=== PATIENT | female | born 1965 | race Caucasian/White ===

== ENCOUNTER → 2018-11-20 | Outpatient (CLI) | payer BC ==
[2018-11-20 23:47] LABS: ALT 45 U/L (8-44); AST 28 U/L (13-35); Albumin/Globulin Ratio 2.09 (1.60-3.17); Alkaline Phosphatase 78 U/L (41-126); C Reactive Protein <0.4 mg/dL (0.0-0.8); Chloride 102 mmol/L (96-109); Globulin 2.2 g/dL (1.6-3.3); Glucose 111 mg/dL (70-110); Sodium 138 mmol/L (135-145); Total Bilirubin 0.7 mg/dL (0.3-1.2); Total Protein 6.8 g/dL (6.2-8.2)
== END | disposition home or self-care (01) ==
LOC: LABWHC1 14:57
PROVIDERS: ATTEND Internal Medicine Critical Care Medicine
DX: D86.9 Sarcoidosis, unspecified (principal)
CPT/HCPCS: 36415; 80053; 82164; 85652; 86140

== ENCOUNTER → 2019-05-12 | Outpatient (CLI) | payer BC ==
[2019-05-12 11:20] LABS: African American GFR (CKD) 115.5 (60.0-200.0); Albumin 4.3 g/dL (3.80-4.90); Albumin/Globulin Ratio 2.15 (1.60-3.17); Anion Gap 10.6 mmol/L (4.00-12.00); BUN/Creat Ratio 24.29 Ratio (12.00-20.00); Calcium 9.1 mg/dL (8.7-10.3); Carbon Dioxide 25.4 mmol/L (21.6-31.8); Chol/HDL Ratio 3.61; LDL Cholesterol,Calculated 56.2 mg/dL (0.0-131.0); Potassium 4.5 mmol/L (3.5-5.5); Total Bilirubin 0.7 mg/dL (0.2-1.2); Total Protein 6.3 g/dL (6.2-8.2); VLDL Calculation 42.8 mg/dL (5.00-40.00)
== END | disposition home or self-care (01) ==
LOC: LABWHC1 07:18
PROVIDERS: ATTEND Family Medicine
DX: E78.5 Hyperlipidemia, unspecified (principal)
CPT/HCPCS: 36415; 80053; 80061; 82550

== ENCOUNTER → 2019-05-19 | Outpatient (CLI) | payer BC ==
--- NOTE | 2019-05-19 11:31 | CT ---
EXAMINATION TYPE: CT chest w con DATE OF EXAM: 05/19/2019 COMPARISON: NONE HISTORY: Pulmonary nodule CT DLP: 464 mGycm. Automated Exposure Control for Dose Reduction was Utilized. TECHNIQUE: CT scan of the thorax is performed following with IV Contrast, patient injected with 100 mL of Isovue 300. FINDINGS: LUNGS: There is a calcified 3-4 mm nodule or granuloma left upper lobe axial image 16. There is calci fied 2 to 3 mm left lower lobe nodule axial image 41 with calcifications seen better on sagittal imag es. There is 2 mm peripheral left lower lobe nodule image 44. There is 2 to 3 mm dense probable calci fied medial right upper lobe nodule image 21 . No definitive greater than 4 mm noncalcified nodules o r masses. No pleural effusion or pneumothorax is seen bilaterally. MEDIASTINUM: There are no greater than 1 cm hilar or mediastinal lymph nodes. Prominent but subcentim eter bilateral hilar lymph nodes are seen. No cardiomegaly or pericardial effusion is seen. OTHER: No additional significant abnormality is seen. IMPRESSION: Scattered small nodules as detailed above. No suspicious greater than 4 mm noncalcified n odules or pulmonary masses identified.
== END ==
LOC: RADCTMAIN 09:29
PROVIDERS: ATTEND Internal Medicine Critical Care Medicine
DX: R91.8 Other nonspecific abnormal finding of lung field (principal)
CPT/HCPCS: 71260; Q9967

== ENCOUNTER 2020-01-17 07:37 | Observation (INO) | payer BC ==
[2020-01-17] MEDS ORDERED: NITROGLYCERIN OINT 1 INCH/GM PACKET TOPICAL STA (07:56)
[2020-01-17] MEDS ORDERED: ASPIRIN 81 MG PO STA (07:56)
--- NOTE | 2020-01-17 08:03 | ED ---
General Adult HPI - General Chief complaint: Chest Pain Stated complaint: Chest pain Time Seen by Provider: 01/17/20 07:37 Source: patient, family, RN notes reviewed, old records reviewed Mode of arrival: ambulatory Limitations: no limitations - History of Present Illness Initial comments: This a 54-year-old female presents to the emergency department complaining of right-sided chest pain. Patient states that sharp in nature and radiates around to her back per patient states she also has some heaviness in her arm. Patient denies any diabetes or high blood pressure but she does state she has high cholesterol. Patient also states she has a strong family history of heart disease in her mother and 2 brothers. Patient denies any smoking. Patient denies any recent fever chills or cough. Patient states the pain is definitely worse with deep breath. Patient states this morning it was severe. Patient denies any abdominal pain patient denies nausea vomiting diarrhea. Patient denies any swelling to the legs or calf tenderness. Patient started this morning when the patient woke up - Related Data Allergies Allergy/AdvReac Type Severity Reaction Status Date / Time No Known Allergies Allergy Verified 01/17/20 07:40 Review of Systems ROS Statement: Those systems with pertinent positive or pertinent negative responses have been documented in the HPI. ROS Other: All systems not noted in ROS Statement are negative. Past Medical History Past Medical History: Hyperlipidemia Additional Past Medical History / Comment(s): sarcoidosis History of Any Multi-Drug Resistant Organisms: None Reported Past Surgical History: Orthopedic Surgery, Tonsillectomy Past Psychological History: No Psychological Hx Reported Smoking Status: Former smoker Past Alcohol Use History: Unable to Obtain, Occasional Past Drug Use History: Marijuana General Exam - General Exam Comments Initial Comments: GENERAL: Patient is well-developed and well-nourished. Patient is nontoxic and well- hydrated and is in mild distress. ENT: Neck is soft and supple. No significant lymphadenopathy is noted. Oropharynx is clear. Moist mucous membranes. Neck has full range of motion without eliciting any pain. EYES: The sclera were anicteric and conjunctiva were pink and moist. Extraocular movements were intact and pupils were equal round and reactive to light. Eyel ids were unremarkable. PULMONARY: Unlabored respirations. Good breath sounds bilaterally. No audible rales rhonchi or wheezing was noted. CARDIOVASCULAR: There is a regular rate and rhythm without any murmurs gallops or rubs. ABDOMEN: Soft and nontender with normal bowel sounds. SKIN: Skin is clear with no lesions or rashes and otherwise unremarkable. NEUROLOGIC: Patient is alert and oriented x3. Cranial nerves II through XII are grossly intact. Motor and sensory are also intact. Normal speech, volume and content. Symmetrical smile. MUSCULOSKELETAL: Normal extremities with adequate strength and full range of motion. LYMPHATICS: No significant lymphadenopathy is noted PSYCHIATRIC: Normal psychiatric evaluation. Limitations: no limitations Course Vital Signs 01/17/20 01/17/20 01/17/20 07:40 08:21 09:39 Temperature 98 F Pulse Rate 107 H 80 90 Respiratory 18 16 18 Rate Blood Pressure 199/89 136/83 120/76 O2 Sat by Pulse 100 98 96 Oximetry Medical Decision Making - Medical Decision Making EKG shows normal sinus rhythm at 84 bpm [place] interval 228 QRSs 80 QT interval 366 QTC is 432. EKG shows no ST segment elevation or depression. Chest shows no acute abnormality. I will back into the room to reevaluate the patient and the patient stated the Nitropaste seem to relieve all the sharp chest pain as well as the arm heaviness. I spoke with some physicians agreed to admit the patient admitted the patient wrote admitting orders I started the patient heparin emergency department I continue the heparin and aspirin Nitropaste on the floor - Lab Data Result diagrams: 01/17/20 08:00 01/17/20 08:00 Lab Results 01/17/20 01/17/20 01/17/20 Range/Units 08:00 08:00 08:00 WBC 5.6 (3.8-10.6) k/uL RBC 4.28 (3.80-5.40) m/uL Hgb 12.5 (11.4-16.0) gm/dL Hct 39.3 (34.0-46.0) % MCV 92.0 (80.0-100.0) fL MCH 29.2 (25.0-35.0) pg MCHC 31.7 (31.0-37.0) g/dL RDW 12.2 (11.5-15.5) % Plt Count 275 (150-450) k/uL Neutrophils % 63 % Lymphocytes % 26 % Monocytes % 6 % Eosinophils % 3 % Basophils % 1 % Neutrophils # 3.5 (1.3-7.7) k/uL Lymphocytes # 1.4 (1.0-4.8) k/uL Monocytes # 0.3 (0-1.0) k/uL Eosinophils # 0.2 (0-0.7) k/uL Basophils # 0.0 (0-0.2) k/uL PT 9.8 (9.0-12.0) sec INR 0.9 (<1.2) APTT 22.0 (22.0-30.0) sec D-Dimer <0.17 (<0.60) mg/L FEU Sodium 135 L (137-145) mmol/L Potassium 4.9 (3.5-5.1) mmol/L Chloride 104 (98-107) mmol/L Carbon Dioxide 19 L (22-30) mmol/L Anion Gap 12 mmol/L BUN 18 H (7-17) mg/dL Creatinine 0.54 (0.52-1.04) mg/dL Est GFR (CKD-EPI)AfAm >90 (>60 ml/min/1.73 sqM) Est GFR (CKD-EPI)NonAf >90 (>60 ml/min/1.73 sqM) Glucose 119 H (74-99) mg/dL Calcium 9.1 (8.4-10.2) mg/dL Magnesium 1.8 (1.6-2.3) mg/dL Total Bilirubin 1.1 (0.2-1.3) mg/dL AST 35 (14-36) U/L ALT 26 (4-34) U/L Alkaline Phosphatase 87 (38-126) U/L Troponin I (0.000-0.034) ng/mL NT-Pro-B Natriuret Pep pg/mL Total Protein 7.6 (6.3-8.2) g/dL Albumin 4.4 (3.5-5.0) g/dL 01/17/20 01/17/20 Range/Units 08:00 08:00 WBC (3.8-10.6) k/uL RBC (3.80-5.40) m/uL Hgb (11.4-16.0) gm/dL Hct (34.0-46.0) % MCV (80.0-100.0) fL MCH (25.0-35.0) pg MCHC (31.0-37.0) g/dL RDW (11.5-15.5) % Plt Count (150-450) k/uL Neutrophils % % Lymphocytes % % Monocytes % % Eosinophils % % Basophils % % Neutrophils # (1.3-7.7) k/uL Lymphocytes # (1.0-4.8) k/uL Monocytes # (0-1.0) k/uL Eosinophils # (0-0.7) k/uL Basophils # (0-0.2) k/uL PT (9.0-12.0) sec INR (<1.2) APTT (22.0-30.0) sec D-Dimer (<0.60) mg/L FEU Sodium (137-145) mmol/L Potassium (3.5-5.1) mmol/L Chloride (98-107) mmol/L Carbon Dioxide (22-30) mmol/L Anion Gap mmol/L BUN (7-17) mg/dL Creatinine (0.52-1.04) mg/dL Est GFR (CKD-EPI)AfAm (>60 ml/min/1.73 sqM) Est GFR (CKD-EPI)NonAf (>60 ml/min/1.73 sqM) Glucose (74-99) mg/dL Calcium (8.4-10.2) mg/dL Magnesium (1.6-2.3) mg/dL Total Bilirubin (0.2-1.3) mg/dL AST (14-36) U/L ALT (4-34) U/L Alkaline Phosphatase (38-126) U/L Troponin I <0.012 (0.000-0.034) ng/mL NT-Pro-B Natriuret Pep 28 pg/mL Total Protein (6.3-8.2) g/dL Albumin (3.5-5.0) g/dL Critical Care Time Critical Care Time: Yes Total Critical Care Time: 35 Disposition Clinical Impression: Unstable angina pectoris Disposition: ADMITTED IP TO THIS HOSP Referrals: Gemini Evans MD [Primary Care Provider] - 1-2 days Time of Disposition: 09:55
--- NOTE | 2020-01-17 08:22 | XR ---
EXAMINATION TYPE: XR chest 2V DATE OF EXAM: 01/17/2020 COMPARISON: NONE HISTORY: Shortness of breath TECHNIQUE: Frontal and lateral views of the chest are obtained. FINDINGS: Scattered senescent parenchymal changes noted. Hyperinflation compatible with COPD. No evidence for infiltrate. No evidence for atelectasis. Heart size is stable. Mediastinal structures are stable and grossly unremarkable. No evidence for hilar prominence. Degenerative changes dorsal spine. IMPRESSION: 1. No evidence for acute pulmonary disease.
[2020-01-17 08:41] LABS: Basophils % (A) 1 %; Eosinophils # (A) 0.2 k/uL (0-0.7); Eosinophils % (A) 3 %; HCT 39.3 % (34.0-46.0); HGB 12.5 gm/dL (11.4-16.0); Lymphocytes # (A) 1.4 k/uL (1.0-4.8); Lymphocytes % (A) 26 %; MCH 29.2 pg (25.0-35.0); MCHC 31.7 g/dL (31.0-37.0); Mean Platelet Volume 7.1; Monocytes # (A) 0.3 k/uL (0-1.0); Monocytes % (A) 6 %; Neutrophils # (A) 3.5 k/uL (1.3-7.7); Neutrophils % (A) 63 %; Platelet Count 275 k/uL (150-450); RBC 4.28 m/uL (3.80-5.40); RDW 12.2 % (11.5-15.5); WBC 5.6 k/uL (3.8-10.6)
[2020-01-17 08:46] LABS: ALT 26 U/L (4-34); African American GFR (CKD) >90 (>60 ml/min/1.73 sqM); Albumin 4.4 g/dL (3.5-5.0); Anion Gap 12 mmol/L; Blood Urea Nitrogen 18 mg/dL (7-17); Calcium 9.1 mg/dL (8.4-10.2); Carbon Dioxide 19 mmol/L (22-30); Chloride 104 mmol/L (98-107); Glucose 119 mg/dL (74-99); Non-African American GFR(CKD) >90 (>60 ml/min/1.73 sqM); Sodium 135 mmol/L (137-145); Total Bilirubin 1.1 mg/dL (0.2-1.3); Total Protein 7.6 g/dL (6.3-8.2)
[2020-01-17 08:52] LABS: INR 0.9 (<1.2); Prothrombin Time 9.8 sec (9.0-12.0)
[2020-01-17 08:55] LABS: AST 35 U/L (14-36); Alkaline Phosphatase 87 U/L (38-126); Magnesium 1.8 mg/dL (1.6-2.3); Potassium 4.9 mmol/L (3.5-5.1)
[2020-01-17 09:05] LABS: D-Dimer <0.17 mg/L FEU (<0.60)
[2020-01-17] MEDS ORDERED: NITROGLYCERIN SL TABS 0.4 MG TAB SUBLINGUAL PRN (09:56)
[2020-01-17] MEDS ORDERED: HEPARIN SODIUM,PORCINE 5,000 UNIT/ML 1 ML VIAL IV ONE (09:56)
[2020-01-17] MEDS ORDERED: HEPARIN SOD,PORK IN 0.45% NACL 25,000 UNIT in 0.45% NACL 1 250ML.BAG IV SCH (10:00)
[2020-01-17] MEDS: NITROGLYCERIN OINT 1 INCH/GM PACKET TOPICAL SCH ×3 (12:10→22:59)
--- NOTE | 2020-01-17 16:02 | CONS ---
CONSULTATION CHIEF COMPLAINT: Chest pain. Flores is a 54-year-old lady with history of dyslipidemia and family history of premature coronary artery disease, who presented to hospital complaining of chest pain. She describes it as a sharp, left-sided chest pain with some left arm discomfort. It is mild in intensity. Patient has a history of sarcoidosis and has had prior episodes of atypical chest pain. At the time of my evaluation, patient appears comfortable at rest and is free of significant symptoms. She had one set of troponin that is negative, had an EKG that did not reveal significant ischemic changes. I reviewed her symptomatology, EKG, and talked to her at length about her treatment options including cardiac catheterization for definitive diagnosis versus stress test. Understanding risks, benefits, she wishes to have a stress test done for further evaluation. I am going to schedule her for a stress echo tomorrow. PAST MEDICAL HISTORY: Significant for dyslipidemia. CURRENT MEDICATIONS: Include fish oil, Tylenol, Lipitor and meloxicam. ALLERGIES: There are no known drug allergies. FAMILY HISTORY: Negative for premature coronary artery disease. SOCIAL HISTORY: Negative for smoking, EtOH abuse, or drug abuse. REVIEW OF SYSTEMS: HEENT: Unremarkable. CARDIAC: As described above. RESPIRATORY: Negative. GI: Negative. GENITOURINARY: Negative. ALLERGY/IMMUNOLOGY: Negative. SKIN: Negative. MUSCULOSKELETAL: Negative. ENDOCRINE: Negative. CONSTITUTIONAL: Negative. ONCOLOGICAL: Negative. KNITTING MACHINE FIXER: Negative. Rest of the system review is not relevant. PHYSICAL EXAMINATION: On exam, patient is comfortable at rest. Vital signs are stable. There is no jugular venous distention. Carotid upstroke is normal. There is no bruit. Chest exam reveals good air entry bilaterally. Heart exam reveals first and second heart sounds. No gallop. No murmur. No rub. Abdomen is soft, nontender. Exam of extremities did not reveal any edema. Peripheral pulses are felt. LABS: Show a hemoglobin of 12.5, platelet count is 275. Potassium is 4.9, creatinine is 0.5. ASSESSMENT: Precordial chest pain. PLAN: Patient will obtain serial CPKs and EKGs to rule out myocardial infarction. Once KS is ruled out, I will perform an echo and stress echo on her and if that is negative, she will be discharged home. If it is abnormal, she will undergo cardiac catheterization. MMODL / IJN: [id number] /
[2020-01-17] MEDS ORDERED: NALOXONE 0.4 MG/ML 1 ML VIAL IV PRN (17:00)
[2020-01-17] MEDS ORDERED: ACETAMINOPHEN TAB 325 MG TAB PO PRN (17:00)
--- NOTE | 2020-01-17 17:00 | P.HPIM ---
History of Present Illness H&P Date: 01/17/20 Chief Complaint: Chest pain Patient is a 54-year-old female with PMH of pulmonary sarcoidosis presents the ED for chest pain. Patient states that she had just taken a shower this morning and she was getting ready when she started experiencing sudden onset left-sided chest pain. She described the pain as sharp and stabbing in nature. The pain did radiate around her left breast. Patient also reports aggravation of her chest pain with deep inspiration. Patient states that the pain was steady. She states that it was a 10 out of 10 in severity. Pain was also associated with left upper extremity heaviness. She did take some aspirin prior to presentation. She denies any other symptoms. She denies any headache, lower sharri edema, nausea or vomiting, fever or chills, cough, shortness of breath, palpitations, changes in urination or bowel habits. No changes in appetite or weight. She denies any dizziness, numbness/weakness/tingling of the extremities. In the ED, her vital signs were stable. CBC was unremarkable. INR was negative. D-dimer was negative. CMP showed sodium 135, bicarbonate of 19, BUN of 18 and glucose of 119. Troponin was less than 0.0122, EKG showing normal sinus rhythm. BNP was 28, chest x-ray was negative. Patient is admitted for chest pain, rule out acute coronary syndrome with cardiology in consultation. Review of Systems Pertinent positives and negatives as discussed in HPI, a complete review of systems was performed and all other systems are negative. Past Medical History Past Medical History: Hyperlipidemia, Osteoarthritis (OA) Additional Past Medical History / Comment(s): sarcoidosis History of Any Multi-Drug Resistant Organisms: None Reported Past Surgical History: Orthopedic Surgery, Tonsillectomy Past Psychological History: No Psychological Hx Reported Smoking Status: Former smoker Past Alcohol Use History: Unable to Obtain, Occasional Past Drug Use History: Marijuana - Past Family History Mother Family Medical History: Diabetes Mellitus, Osteoarthritis (OA) Additional Family Medical History / Comment(s): congenital heart block, CABG in 1993 Father Additional Family Medical History / Comment(s): at 46, stroke at 42. Brother(s) Family Medical History: Coronary Artery Disease (CAD), Diabetes Mellitus Medications and Allergies Home Medications Medication Instructions Recorded Confirmed Type Acetaminophen [Tylenol Arthritis] 650 mg PO BID PRN 01/17/20 01/17/20 History Atorvastatin [Lipitor] 20 mg PO HS 01/17/20 01/17/20 History Cholecalciferol [Vitamin D3 (25 2,000 unit PO DAILY 01/17/20 01/17/20 History Mcg = 1000 Iu)] Fish Oil/Dha/Epa [Fish Oil 1,200 1 cap PO HS 01/17/20 01/17/20 History mg Fish Oil] Meloxicam 15 mg PO DAILY 01/17/20 01/17/20 History Allergies Allergy/AdvReac Type Severity Reaction Status Date / Time No Known Allergies Allergy Verified 01/17/20 10:14 Physical Exam Vitals: Vital Signs Temp Pulse Pulse Resp BP BP Pulse Ox 01/17/20 15:02 105 H 16 01/17/20 15:01 105 H 16 125/95 97 01/17/20 14:20 102 H 18 113/72 94 L 01/17/20 11:57 98 16 01/17/20 11:39 98 16 115/64 96 01/17/20 11:00 84 16 130/89 98 01/17/20 10:30 82 14 131/73 97 01/17/20 10:00 94 18 120/76 98 01/17/20 09:39 90 18 120/76 96 01/17/20 09:30 79 15 122/71 96 01/17/20 09:00 85 16 128/71 96 01/17/20 08:30 78 17 136/83 97 01/17/20 08:21 80 16 136/83 98 01/17/20 08:01 43 H 01/17/20 07:40 98 F 107 H 18 199/89 100 Intake and Output 01/17/20 01/17/20 01/17/20 06:59 14:59 22:59 Other: Weight 81.647 kg General: [non toxic], [no distress], [appears at stated age] Derm: [warm], [dry] Head: [atraumatic], [normocephalic], [symmetric] Eyes: [EOMI], [no lid lag], [anicteric sclera] Mouth: [no lip lesion], [mucus membranes moist] Cardiovascular: [S1S2 reg], [no murmur], [positive posterior tibial pulse bilateral], Lungs: [CTA bilateral], [no rhonchi, no rales] , [no accessory muscle use] Abdominal: [soft], [ nontender to palpation], [no guarding], [no appreciable organomegaly] Ext: [no gross muscle atrophy], [no edema], [no contractures] Neuro: [ CN II-XI grossly intact], [no focal neuro deficits] Psych: [Alert], [oriented], [appropriate affect] Results CBC & Chem 7: 01/17/20 08:00 01/17/20 08:00 Labs: Abnormal Lab Results - Last 24 Hours (Table) 01/17/20 Range/Units 08:00 Sodium 135 L (137-145) mmol/L Carbon Dioxide 19 L (22-30) mmol/L BUN 18 H (7-17) mg/dL Glucose 119 H (74-99) mg/dL Thrombosis Risk Factor Assmnt - Choose All That Apply Each Factor Represents 1 point: Age 41-60 years, Obesity (BMI >25) Each Risk Factor Represents 3 Points: Family history of DVT/PE Thrombosis Risk Factor Assessment Total Risk Factor Score: 5 Thrombosis Risk Factor Assessment Level: High Risk Assessment and Plan Assessment: Chest pain, atypical Dyslipidemia History of pulmonary sarcoidosis Elevated BUN Metabolic acidosis Troponin has been less than 0.0122 with EKG showing normal sinus rhythm. Her symptoms are atypical for cardiac chest pain. She has been started on heparin drip from the ED. She was started on aspirin and Lipitor. Patient was placed on telemetry monitoring. We will discontinue the heparin drip. Cardiology has been consulted and recommended stress echocardiogram. Her home medication of Lipitor will be restarted for dyslipidemia and we will follow lipid panel. Patient used to follow Dr. Colmenares employee benefits administrator in the past but currently follows her PCP. She will be restarted on vitamin D. Her elevated BUN and metabolic acidosis is likely related to dehydration. She has been encouraged hydration by mouth. Plans to repeat BMP tomorrow morning. DVT prophylaxis: [Heparin] Discussed with: [Patient and ] Anticipated discharge: [1-2 days] Anticipated discharge place: [Home] A total of [35] minutes was spent on the care of this complex patient more than 50% of the time was spent in counseling and care coordination. Patient names her Calderon decision maker if she can't make decisions for herself. Patient would like to be full code.
[2020-01-17] MEDS: HEPARIN SODIUM,PORCINE 5,000 UNIT/ML 1 ML VIAL SQ SCH (19:56)
[2020-01-17] MEDS: ATORVASTATIN 20 MG TAB PO SCH (19:56)
[2020-01-18] MEDS: NITROGLYCERIN OINT 1 INCH/GM PACKET TOPICAL SCH ×4 (04:54→22:50)
[2020-01-18 06:50] LABS: African American GFR (CKD) >90 (>60 ml/min/1.73 sqM); Amylase 52 U/L (30-110); Anion Gap 7 mmol/L; Blood Urea Nitrogen 14 mg/dL (7-17); Calcium 8.6 mg/dL (8.4-10.2); Carbon Dioxide 26 mmol/L (22-30); Chloride 105 mmol/L (98-107); Cholesterol 127 mg/dL (<200); Glucose 125 mg/dL (74-99); HDL Cholesterol 28 mg/dL (40-60); Non-African American GFR(CKD) >90 (>60 ml/min/1.73 sqM); Potassium 4.6 mmol/L (3.5-5.1); Sodium 138 mmol/L (137-145); Triglycerides 494 mg/dL (<150)
[2020-01-18] MEDS: ASPIRIN 325 MG TAB PO SCH (08:17)
[2020-01-18] MEDS: HEPARIN SODIUM,PORCINE 5,000 UNIT/ML 1 ML VIAL SQ SCH ×2 (08:18→20:39)
[2020-01-18] MEDS: CHOLECALCIFEROL 1,000 UNIT TAB PO SCH (08:18)
--- NOTE | 2020-01-18 10:09 | P.DS ---
Providers Date of admission: 01/17/20 09:59 Expected date of discharge: 01/18/20 Attending physician: Nicole Mujica MD Consults: 01/17/20 09:56 Consult Physician Urgent Consulting Provider: [facility] Consult Reason/Comments: Unstable angina Do you want consulting provider notified?: Yes Primary care physician: [facility] Course: Patient is a 54-year-old female with PMH of pulmonary sarcoidosis presents the ED for chest pain. Patient states that she had just taken a shower this morning and she was getting ready when she started experiencing sudden onset left-sided chest pain. She described the pain as sharp and stabbing in nature. The pain did radiate around her left breast. Patient also reports aggravation of her chest pain with deep inspiration. Patient states that the pain was steady. She states that it was a 10 out of 10 in severity. Pain was also associated with left upper extremity heaviness. She did take some aspirin prior to presentation. She denies any other symptoms. She denies any headache, lower sharri edema, nausea or vomiting, fever or chills, cough, shortness of breath, palpitations, changes in urination or bowel habits. No changes in appetite or weight. She denies any dizziness, numbness/weakness/tingling of the extremities. In the ED, her vital signs were stable. CBC was unremarkable. INR was negative. D-dimer was negative. CMP showed sodium 135, bicarbonate of 19, BUN of 18 and glucose of 119. Troponin was less than 0.0122, EKG showing normal sinus rhythm. BNP was 28, chest x-ray was negative. Patient is admitted for chest pain, rule out acute coronary syndrome with cardiology in consultation. Her d-dimer is negative and there was very low suspicion for PE. She was saturating high 90s on room air and was hemodynamically stable throughtout her admission. Acute coronary syndrome has been ruled out. She was initially started on a heparin drip which was discontinued and she was started on heparin prophylactic DVT dose. Troponin has been less than 0.0123 with EKG showing normal sinus rhythm. ACS was ruled out . She was started on aspirin and Lipitor. Patient was placed on telemetry monitoring. Cardiology has been consulted and recommended stress echocardiogram. Stress test was pending at the time of this note. Patient was seen and examined. No acute events overnight. Patient reports complete resolution of her chest pain. She denies any chest pain, shortness breath or palpitations. No nausea or vomiting. No fever or chills. General: [non toxic], [no distress], [appears at stated age] Derm: [warm], [dry] Head: [atraumatic], [normocephalic], [symmetric] Eyes: [EOMI], [no lid lag], [anicteric sclera] Mouth: [no lip lesion], [mucus membranes moist] Cardiovascular: [S1S2 reg], [no murmur], [positive posterior tibial pulse bilateral], Lungs: [CTA bilateral], [no rhonchi, no rales] , [no accessory muscle use] Abdominal: [soft], [ nontender to palpation], [no guarding], [no appreciable organomegaly] Ext: [no gross muscle atrophy], [no edema], [no contractures] Neuro: [ CN II-XI grossly intact], [no focal neuro deficits] Psych: [Alert], [oriented], [appropriate affect] Chest pain, atypical Dyslipidemia History of pulmonary sarcoidosis Elevated BUN, resolved Metabolic acidosis, resolved Troponins have been negative and ACS is been ruled out. Patient is scheduled for stress echocardiogram. Cardiology is on board. Plans on DC home today if stress test negative. Chest pain is pleuritic, atypical for cardiac pain, possible pleurisy in the setting of sarcoidosis. If her stress test is negative, plan is to DC patient home on steroid taper. Continue Lipitor and fish oil for dyslipidemia. Follow-up PCP within 3 days of discharge. Pertinent Studies: Chest x-ray, echocardiogram, stress echocardiogram Patient Condition at Discharge: Stable Plan - Discharge Summary Discharge Rx Participant: No New Discharge Prescriptions: New methylPREDNISolone Dose Pack [Medrol Dose Pack] 4 mg PO DIRECTED #21 package Continue Meloxicam 15 mg PO DAILY Fish Oil/Dha/Epa [Fish Oil 1,200 mg Fish Oil] 1 cap PO HS Cholecalciferol [Vitamin D3 (25 Mcg = 1000 Iu)] 2,000 unit PO DAILY Atorvastatin [Lipitor] 20 mg PO HS Acetaminophen [Tylenol Arthritis] 650 mg PO BID PRN PRN Reason: Pain Discharge Medication List Acetaminophen [Tylenol Arthritis] 650 mg PO BID PRN 01/17/20 [History] Atorvastatin [Lipitor] 20 mg PO HS 01/17/20 [History] Cholecalciferol [Vitamin D3 (25 Mcg = 1000 Iu)] 2,000 unit PO DAILY 01/17/20 [History] Fish Oil/Dha/Epa [Fish Oil 1,200 mg Fish Oil] 1 cap PO HS 01/17/20 [History] Meloxicam 15 mg PO DAILY 01/17/20 [History] methylPREDNISolone Dose Pack [Medrol Dose Pack] 4 mg PO DIRECTED #21 package 01/18/20 [Rx] Follow up Appointment(s)/Referral(s): Gemini Evans MD [Primary Care Provider] - 1-2 days Activity/Diet/Wound Care/Special Instructions: Diet: Heart healthy Follow-up with PCP within 3 days of discharge. Take all medications as advised. Compared to the ED or call 911 for worsening chest pain, shortness breath, palpitations or dizziness. Discharge Disposition: HOME SELF-CARE
[2020-01-18] MEDS ORDERED: ALPRAZolam 0.5 MG TAB PO PRN (10:47)
[2020-01-18] MEDS ORDERED: ATORVASTATIN 80 MG TAB PO STA (10:47)
[2020-01-18] MEDS ORDERED: NITROGLYCERIN SL TABS 0.4 MG TAB SUBLINGUAL PRN (10:47)
[2020-01-18] MEDS ORDERED: ASPIRIN 325 MG TAB PO STA (10:47)
[2020-01-18] MEDS ORDERED: ALPRAZolam 0.25 MG TAB PO PRN (10:47)
[2020-01-18] MEDS ORDERED: SODIUM CHLORIDE 0.9% 1,000 ML in EMPTY BAG 1 BAG IV ONE (10:47)
--- NOTE | 2020-01-18 11:00 | ECHOF ---
Referral Reason:chest pain MEASUREMENTS -------- HEIGHT: 157.5 cm WEIGHT: 87.1 kg BP: 128/75 RVIDd: 3.0 cm (< 3.3) IVSd: 1.2 cm (0.6 - 1.1) LVIDd: 3.6 cm (3.9 - 5.3) LVPWd: 1.2 cm (0.6 - 1.1) IVSs: 1.5 cm LVIDs: 2.3 cm LVPWs: 1.3 cm LA Diam: 3.5 cm (2.7 - 3.8) LAESV Index (A-L): 24.45 ml/m Ao Diam: 2.6 cm (2.0 - 3.7) AV Cusp: 1.9 cm (1.5 - 2.6) MV EXCURSION: 14.273 mm (> 18.000) MV EF SLOPE: 81 mm/s (70 - 150) EPSS: 0.4 cm MV E Moses: 0.80 m/s MV DecT: 206 ms MV A Moses: 0.75 m/s MV E/A Ratio: 1.08 RAP: 5.00 mmHg RVSP: 22.70 mmHg FINDINGS -------- Sinus rhythm. This was a technically adequate study. The left ventricular size is normal. There is borderline concentric left ventricular hypertrophy. Overall left ventricular systolic function is normal with, an EF between 60 - 65 %. The right ventricle is normal in size. Normal LA size by volume 22+/-6 ml/m2. The right atrium is normal in size. Interatrial and interventricular septum intact. The aortic valve is trileaflet and appears structurally normal. The mitral valve is normal. The tricuspid valve appears structurally normal. Trace/mild (physiologic) pulmonic regurgitation. The aortic root size is normal. IVC Not well visulized. There is no pericardial effusion. CONCLUSIONS -------- 1. Sinus rhythm. 2. This was a technically adequate study. 3. The left ventricular size is normal. 4. There is borderline concentric left ventricular hypertrophy. 5. Overall left ventricular systolic function is normal with, an EF between 60 - 65 %. 6. The right ventricle is normal in size. 7. Normal LA size by volume 22+/-6 ml/m2. 8. The right atrium is normal in size. 9. Interatrial and interventricular septum intact. 10. The aortic valve is trileaflet and appears structurally normal. 11. The mitral valve is normal. 12. The tricuspid valve appears structurally normal. 13. Trace/mild (physiologic) pulmonic regurgitation. 14. The aortic root size is normal. 15. IVC Not well visulized. 16. There is no pericardial effusion. PIPE TURNER: Hanh Cadet RDCS
--- NOTE | 2020-01-18 12:03 | P.PN ---
Subjective Progress Note Date: 01/18/20 This is a 54-year-old female with history of hyperlipidemia, family history of premature coronary artery disease who presented to the hospital with symptoms of chest discomfort, she was seen in consultation yesterday by Dr. Anderson, recommended today to undergo an echocardiogram as well as a stress echocardiographic study. Stress test being reviewed today by Dr. Lew Bae who spoke with Dr. Anderson and stated that the stress echo on this patient was abnormal. For this reason, patient was advised to undergo cardiac catheterization. The risks and the benefits were explained to the patient in detail and she is willing to proceed. This will be done today by Dr. Welch. An echocardiogram with Doppler study was performed which revealed an ejection fraction of 60-65%. Blood pressure 140/80 with a heart rate in the 70s, 97% on room air. Sodium 138, potassium 4.6, BUN 14, creatinine 0.5. Objective - Vital Signs Vital signs: Vital Signs Temp 97.9 F 01/18/20 08:00 Pulse 77 01/18/20 08:00 Resp 16 01/18/20 08:00 BP 146/84 01/18/20 08:00 Pulse Ox 97 01/18/20 08:00 Intake & Output 01/17/20 01/18/20 01/18/20 18:59 06:59 18:59 Weight 81.647 kg 87.2 kg Other: # Voids 1 - Exam PHYSICAL EXAMINATION: GENERAL: 54-year-old female in no acute distress at the time of my examination HEENT: Head is atraumatic, normocephalic. Pupils equal, round. Sclera anicteric. Conjunctiva are clear. Mucous membranes of the mouth are moist. Neck is supple. There is no elevated jugular venous pressure. No carotid bruit is heard. HEART EXAMINATION: Heart S1, S2 normal. No murmur or gallop heard. CHEST EXAMINATION: Lungs are clear to auscultation and precussion. No chest wall tenderness is noted on palpation or with deep breathing. ABDOMEN: Soft, nontender. Bowel sounds are heard. No organomegaly noted. EXTREMITIES: 2+ peripheral pulses with no evidence of peripheral edema and no calf tenderness noted. NEUROLOGIC patient is awake, alert and oriented 3 . . - Labs CBC & Chem 7: 01/17/20 08:00 05/19/20 06:16 Labs: Abnormal Lab Results - Last 24 Hours (Table) 01/17/20 01/18/20 Range/Units 17:15 06:16 APTT 34.6 H (22.0-30.0) sec Glucose 125 H (74-99) mg/dL Triglycerides 494 H (<150) mg/dL HDL Cholesterol 28 L (40-60) mg/dL Assessment and Plan Plan: Assessment and plan #1 atypical chest discomfort. #2 hyperlipidemia #3 family history of premature coronary artery disease Plan Patient underwent a stress echocardiographic study today, reported to be positive by Dr. Lew Bae. Patient will undergo cardiac catheterization today by Dr. Anderson, the risks and the benefits were explained to the patient in detail and she is willing to proceed. Further recommendations will be based on these findings and the patient's overall clinical course. DNP note has been reviewed, I agree with a documented findings and plan of care. Patient was seen and examined.
[2020-01-18] MEDS ORDERED: LIDOCAINE 1% INJ 10MG/ML (20 ML MDV) SQ ONE (12:30)
[2020-01-18] MEDS ORDERED: fentaNYL (PF) 50 MCG/ML 2 ML AMP IVP ONE (14:30)
[2020-01-18] MEDS ORDERED: MIDAZOLAM 2 MG/2 ML VIAL IVP ONE (14:30)
[2020-01-18] MEDS ORDERED: IOPAMIDOL-370 125ML BTL INJ ONE (14:53)
[2020-01-18] MEDS ORDERED: IV FLUID CONTINUATION 1,000 ML IV ONE (14:54)
[2020-01-18] MEDS ORDERED: IOPAMIDOL-370 50ML BTL INJ ONE (15:16)
[2020-01-18] MEDS ORDERED: IOPAMIDOL-370 100ML BTL INJ ONE (15:45)
[2020-01-18] MEDS: ATORVASTATIN 20 MG TAB PO SCH (20:39)
[2020-01-19] MEDS: NITROGLYCERIN OINT 1 INCH/GM PACKET TOPICAL SCH (05:00)
--- NOTE | 2020-01-19 08:34 | EST ---
EXERCISE STRESS AGE: 54 SEX: F HT: 5'2" WT: 180 lbs. PROTOCOL: Pablo STAGE: 3 DURATION OF EXERCISE: 8:00 HEART RATE REST: 91 BLOOD PRESSURE REST: 104/75 MAXIMUM HEART RATE ACHIEVED: 166 MAXIMUM BLOOD PRESSURE: 209/68 85% MPHR: 143 100% MPHR: 168 METS: 9.7 INDICATIONS: Chest pain CLINICAL INFORMATION: Baseline EKG revealed a normal sinus rhythm without significant ST-T changes. Patient walked for 8 minutes on a standard Pablo protocol. Achieved a maximal heart rate of 164 beats per minute which is more than 85% of predicted maximal. She developed fatigue and shortness of breath and at the end of exercise, she complained of some discomfort in the chest suggestive angina. She did not have any arrhythmia. She developed 1.[address]-segment depression at peak exercise, suggestive of ischemia. She also had discomfort in the chest. These EKG changes improved at about 3 minutes of exercise, but did not quite come to baseline. Her resting heart rate was 91 beats per minute and resting blood pressure was 104/75. Peak heart rate was 164 beats per minute and the peak blood pressure was 209/68. This is a positive stress test with ST-segment depression and subjective symptoms of angina. Fair exercise capacity with a positive stress test by EKG criteria with subjective symptoms of angina. Results were communicated with Dr. Welch. RENETTA / OWEN: [id number] /
[2020-01-19] MEDS: ASPIRIN 325 MG TAB PO SCH (08:43)
[2020-01-19] MEDS: CHOLECALCIFEROL 1,000 UNIT TAB PO SCH (08:43)
[2020-01-19] MEDS: HEPARIN SODIUM,PORCINE 5,000 UNIT/ML 1 ML VIAL SQ SCH (08:43)
[2020-01-19 08:48] VITALS: BP 128/70; PULSE 63; RESP 16; TEMP 97.4
--- NOTE | 2020-01-19 10:28 | P.PN ---
Subjective Progress Note Date: 01/19/20 Principal diagnosis: Chest pain Patient was seen and examined. No acute events overnight. Underwent cardiac catheterization yesterday, negative. Stress test was positive. She denies any chest pain, shortness breath or palpitations. No fever or chills. No nausea or vomiting. Objective - Vital Signs Vital signs: Vital Signs Temp 97.4 F L 01/19/20 08:00 Pulse 63 01/19/20 08:00 Resp 16 01/19/20 08:00 BP 128/70 01/19/20 08:00 Pulse Ox 99 01/19/20 08:00 Intake & Output 01/18/20 01/19/20 01/19/20 18:59 06:59 18:59 Intake Total 896 Balance 896 Weight 86.5 kg 86.5 kg Intake: IV 200 Intake, IV Titration 696 Amount Sodium Chloride 0.9% 1, 696 000 ml In Empty Bag 1 bag @ 1 ML/KG/HR 87.2 mls/hr IV .[id number] ONE Rx#: [id number] Other: # Voids 3 1 - Exam General: [non toxic], [no distress], [appears at stated age] Derm: [warm], [dry] Head: [atraumatic], [normocephalic], [symmetric] Eyes: [EOMI], [no lid lag], [anicteric sclera] Mouth: [no lip lesion], [mucus membranes moist] Cardiovascular: [S1S2 reg], [no murmur], [positive posterior tibial pulse bilateral], Lungs: [CTA bilateral], [no rhonchi, no rales] , [no accessory muscle use] Abdominal: [soft], [ nontender to palpation], [no guarding], [no appreciable organomegaly] Ext: [no gross muscle atrophy], [no edema], [no contractures] Neuro: [ CN II-XI grossly intact], [no focal neuro deficits] Psych: [Alert], [oriented], [appropriate affect] - Labs CBC & Chem 7: 01/17/20 08:00 01/18/20 06:16 Assessment and Plan Assessment: Chest pain, atypical Dyslipidemia History of pulmonary sarcoidosis Elevated BUN, resolved Metabolic acidosis, resolved Troponins have been negative and ACS is been ruled out. Stress test was positive. Cardiac cath was negative. Cardiology is on board. Plans on DC home today. Chest pain is pleuritic, atypical for cardiac pain, possible pleurisy in the setting of sarcoidosis. If her stress test is negative, plan is to DC patient home on steroid taper. Continue Lipitor and fish oil for dyslipidemia. Follow-up PCP within 3 days of discharge.
--- NOTE | 2020-01-19 11:17 | P.PN ---
Subjective Progress Note Date: 01/19/20 This is a 54-year-old female with history of hyperlipidemia, family history of premature coronary artery disease who presented to the hospital with symptoms of chest discomfort, she was seen in consultation yesterday by Dr. Anderson, recommended today to undergo an echocardiogram as well as a stress echocardiographic study. Stress test being reviewed today by Dr. Lew Bae who spoke with Dr. Anderson and stated that the stress echo on this patient was abnormal. For this reason, patient was advised to undergo cardiac catheterization. The risks and the benefits were explained to the patient in detail and she is willing to proceed. This will be done today by Dr. Welch. An echocardiogram with Doppler study was performed which revealed an ejection fraction of 60-65%. Blood pressure 140/80 with a heart rate in the 70s, 97% on room air. Sodium 138, potassium 4.6, BUN 14, creatinine 0.5. 01/19/2020 Patient underwent a cardiac catheterization yesterday which did not reveal any significant obstructive coronary artery disease. She was seen and examined this morning, denied any chest pain in her breathing is stable. Hemodynamically she is stable Objective - Vital Signs Vital signs: Vital Signs Temp 97.4 F L 01/19/20 08:00 Pulse 63 01/19/20 08:00 Resp 16 01/19/20 08:00 BP 128/70 01/19/20 08:00 Pulse Ox 99 01/19/20 08:00 Intake & Output 01/18/20 01/19/20 01/19/20 18:59 06:59 18:59 Intake Total 896 Balance 896 Weight 86.5 kg 86.5 kg Intake: IV 200 Intake, IV Titration 696 Amount Sodium Chloride 0.9% 1, 696 000 ml In Empty Bag 1 bag @ 1 ML/KG/HR 87.2 mls/hr IV .[id number] ONE Rx#: [id number] Other: # Voids 3 1 - Exam PHYSICAL EXAMINATION: GENERAL: 54-year-old female in no acute distress at the time of my examination HEENT: Head is atraumatic, normocephalic. Pupils equal, round. Sclera anicteric. Conjunctiva are clear. Mucous membranes of the mouth are moist. Neck is supple. There is no elevated jugular venous pressure. No carotid bruit is heard. HEART EXAMINATION: Heart S1, S2 normal. No murmur or gallop heard. CHEST EXAMINATION: Lungs are clear to auscultation and precussion. No chest wall tenderness is noted on palpation or with deep breathing. ABDOMEN: Soft, nontender. Bowel sounds are heard. No organomegaly noted. EXTREMITIES: 2+ peripheral pulses with no evidence of peripheral edema and no calf tenderness noted. Right groin is soft, no evidence of any hematoma. NEUROLOGIC patient is awake, alert and oriented 3 . . - Labs CBC & Chem 7: 01/17/20 08:00 01/18/20 06:16 Assessment and Plan Plan: Assessment and plan #1 atypical chest discomfort. Positive stress test, status post cardiac catheterization which did not reveal any significantly obstructive coronary artery disease #2 hyperlipidemia #3 family history of premature coronary artery disease Plan From cardiology's perspective, the patient may be able to be discharged home today. We'll make her a follow-up appointment in the office post discharge. DNP note has been reviewed, I agree with a documented findings and plan of care. Patient was seen and examined.
--- NOTE | 2020-01-19 18:37 | CC ---
CARDIAC CATHETERIZATION REPORT INDICATION: Chest pain with abnormal stress test. PROCEDURE NOTE: After obtaining informed consent, left heart catheterization and coronary angiogram were performed via the right femoral artery. The left coronary artery was engaged using a size 3.5 Bill catheter. Right coronary artery had an ectopic origin. It originated very close to the left ostium and we went through multiple catheter exchanges including a Bill, [place], Clay posterior multipurpose and Amplatz AR and ultimately ended up obtaining selective images with an AL catheter. The patient tolerated the procedure well without any obvious immediate complications. Patient received moderate conscious sedation and total sedation time was 40 minutes. FINDINGS: HEMODYNAMICS: Left ventricular end-diastolic pressure is 14 mm. There is no significant gradient across the aortic valve. LEFT VENTRICULOGRAM: Is not performed. ANGIOGRAPHIC DATA: LEFT MAIN CORONARY ARTERY: Left main coronary artery is a short vessel, free of stenosis. Divides into left anterior descending coronary artery and circumflex coronary artery. LEFT ANTERIOR DESCENDING CORONARY ARTERY: LAD and its branches, circumflex coronary artery and its branches are free of significant stenosis. RIGHT CORONARY ARTERY: Right coronary artery has an ectopic origin and shows mild atherosclerotic changes in the proximal portion but is free of significant disease. The patient also underwent an aortogram to locate the right coronary artery. Aorta is not enlarged. There is no aneurysm. CONCLUSIONS: 1. Mild nonobstructive coronary artery disease involving right coronary artery. 2. Ectopic origin in the right coronary artery was engaged using an AL catheter. PLAN: Patient's management is going to be in the form of risk factor modification and optimal medical therapy. MMODL / IJN: [id number] /
== END 2020-01-19 11:15 | disposition home or self-care (01) ==
LOC: EC 07:37 → 3SCARD 09:59
PROVIDERS: ADMIT Family Medicine; ATTEND Family Medicine
DX: R07.89 Other chest pain (principal); D86.9 Sarcoidosis, unspecified; E78.00 Pure hypercholesterolemia, unspecified; E78.5 Hyperlipidemia, unspecified; E86.0 Dehydration; E87.2 Acidosis; I25.110 Atherosclerotic heart disease of native coronary artery with unstable angina pectoris; Z79.1 Long term (current) use of non-steroidal anti-inflammatories (NSAID); Z79.899 Other long term (current) drug therapy; Z82.49 Family history of ischemic heart disease and other diseases of the circulatory system; Z83.3 Family history of diabetes mellitus; Z87.891 Personal history of nicotine dependence; Z03.818 Encounter for observation for suspected exposure to other biological agents ruled out
CPT/HCPCS: 96376; 96372 ×3; 96374; 96375 ×2; 93005 ×2; 36415; 93017; 93306; 93458; 85379; 83880; 80061; 80053; 80048; 82150; 83690; 83735; 84484; 85025; 85610; 85730; 87635; 71046; G0378 ×3; C1769 ×2; C1760; C1894; J2250; J1644 ×4; J2001; J3010; Q9967 ×3

== ENCOUNTER → 2021-01-05 | Outpatient (CLI) | payer BC ==
--- NOTE | 2021-01-06 04:57 | US ---
EXAMINATION TYPE: US pelvic complete DATE OF EXAM: 01/05/2021 COMPARISON: NONE CLINICAL HISTORY: R10.2 pelvic pain. TECHNIQUE: Transabdominal (TA). Date of LMP: August EXAM MEASUREMENTS: Uterus: 8.2 x 3.5 x 4.1 cm Endometrial Stripe: 0.4 cm Right Ovary: 2.2 x 1.2 x 1.2 cm Left Ovary: 2.0 x 1.0 x 1.0 cm 1. Uterus: Anteverted wnl 2. Endometrium: wnl 3. Right Ovary: wnl 4. Left Ovary: wnl 5. Bilateral Adnexa: wnl 6. Posterior cul-de-sac: wnl IMPRESSION: Negative transabdominal pelvic sonogram. No adnexal mass or free fluid. Normal uterus.
== END | disposition home or self-care (01) ==
LOC: RADUSWWP 13:30
PROVIDERS: ATTEND Family Medicine
DX: R10.2 Pelvic and perineal pain (principal)
CPT/HCPCS: 76856

== ENCOUNTER → 2021-01-18 | Outpatient (CLI) | payer BC ==
--- NOTE | 2021-01-22 09:22 | MM ---
Reason for exam: screening (asymptomatic). Last mammogram was performed 12 years and 4 months ago. History: Family history of premenopausal breast cancer in aunt at age 30 and breast cancer in cousin at age 52. Physical Findings: A clinical breast exam by your physician is recommended on an annual basis and results should be correlated with mammographic findings. MG 3D Screening Mammo W/Cad Bilateral CC and MLO view(s) were taken. No prior studies available for comparison. The breast tissue is heterogeneously dense. This may lower the sensitivity of mammography. Asymmetric distortion upper outer left breast. ASSESSMENT: Incomplete: need additional imaging evaluation, BI-RAD 0 RECOMMENDATION: Special view mammogram of the left breast. If lesion persists on supplemental views, image directed ultrasound is recommended. [facility] will attempt to contact patient to return for supplemental views and ultrasound if indicated.
== END | disposition home or self-care (01) ==
LOC: RADMAMWWP 09:57
PROVIDERS: ATTEND Family Medicine
DX: Z12.31 Encounter for screening mammogram for malignant neoplasm of breast (principal); Z80.3 Family history of malignant neoplasm of breast
CPT/HCPCS: 77063; 77067

== ENCOUNTER → 2021-01-30 | Outpatient (CLI) | payer BC ==
--- NOTE | 2021-02-27 11:39 | MM ---
Reason for exam: additional evaluation requested from abnormal screening. Last mammogram was performed less than 1 month ago. History: Family history of premenopausal breast cancer in aunt at age 30 and breast cancer in cousin at age 52. Physical Findings: Nurse did not find any significant physical abnormalities on exam. MG 3D Work Up W/Cad LT Spot compression CC, spot compression MLO, and LM view(s) were taken of the left breast. Prior study comparison: January 18, 2021, bilateral MG 3d screening mammo w/cad. December 23, 2017, mammogram, performed at [facility]. September 08, 2008, bilateral digital screening mammogram. Left 4cm focal asymmetry at 1-2 o'clock approximately 4.5cm from nipple. These results were verbally communicated with the patient on 02/27/21. ASSESSMENT: Incomplete: need additional imaging evaluation, BI-RAD 0 RECOMMENDATION: Ultrasound of the left breast.
--- NOTE | 2021-02-27 11:40 | USB ---
Reason for exam: additional evaluation requested from abnormal screening. History: Family history of premenopausal breast cancer in aunt at age 30 and breast cancer in cousin at age 52. US Breast Workup Limited LT Left limited breast ultrasound including focal area of concern, retroareolar and axilla demonstrates no cystic or solid lesion seen. No sonographic finding left breast 1-2 o'clock. These results were verbally communicated with the patient on 02/27/21. ASSESSMENT: Probably benign, BI-RAD 3 RECOMMENDATION: Follow-up diagnostic mammogram of the left breast in 6 months.
== END | disposition home or self-care (01) ==
LOC: RADMAMWWP 14:45
PROVIDERS: ATTEND Family Medicine
DX: R92.8 Other abnormal and inconclusive findings on diagnostic imaging of breast (principal); Z80.3 Family history of malignant neoplasm of breast
CPT/HCPCS: 77061; 77065

== ENCOUNTER → 2021-07-31 | Outpatient (CLI) | payer BC ==
--- NOTE | 2021-07-31 10:57 | MM ---
Reason for exam: follow-up at short interval from prior study. Last mammogram was performed 6 months ago. History: Family history of premenopausal breast cancer in aunt at age 30 and breast cancer in cousin at age 52. Physical Findings: Nurse did not find any significant physical abnormalities on exam. MG 3D Diag Mammo W/Cad LT CC, MLO, and LM view(s) were taken of the left breast. Prior study comparison: January 30, 2021, left breast MG 3d work up w/cad LT. January 18, 2021, bilateral MG 3d screening mammo w/cad. The breast tissue is heterogeneously dense. This may lower the sensitivity of mammography. No significant new findings when compared with previous films. These results were verbally communicated with the patient and result sheet given to the patient on 07/31/21. ASSESSMENT: Benign, BI-RAD 2 RECOMMENDATION: Return to routine screening mammogram schedule for both breasts. Back on schedule for December 2021.
== END | disposition home or self-care (01) ==
LOC: RADMAMWWP 10:09
PROVIDERS: ATTEND Family Medicine
DX: R92.8 Other abnormal and inconclusive findings on diagnostic imaging of breast (principal)
CPT/HCPCS: 77061; 77065

== ENCOUNTER → 2022-01-29 | Outpatient (CLI) | payer BC ==
--- NOTE | 2022-01-30 07:52 | MM ---
Reason for Exam: Screening (asymptomatic). Last screening mammogram was performed 12 month(s) ago. Patient History: Menarche at age 14. First Full-Term at age 27. Postmenopausal. Maternal cousin had breast cancer, age 52. Maternal aunt had breast cancer, age 30. Risk Values: Rhoda 5 year model risk: 1.3%. NCI Lifetime model risk: 9.3%. Film Views: Bilateral CC views were taken. Bilateral MLO views were taken. 2 view(s) taken. Prior Study Comparison: 01/18/2021 Bilateral Screening Mammogram, [facility]. 01/30/2021 Left Diagnostic Mammogram, [facility]. 07/31/2021 Left Diagnostic Mammogram, [facility]. Tissue Density: The breast tissue is heterogeneously dense. This may lower the sensitivity of mammography. Findings: Analyzed By CAD. Benign-appearing calcifications right breast. No dominant mass or architectural distortion. No suspicious grouped calcifications. Overall Assessment: Benign, BI-RAD 2 Management: Screening Mammogram of both breasts in 1 year. A clinical breast exam by your physician is recommended on an annual basis and results should be correlated with mammographic findings. Electronically signed and approved by: Celestino Jain M.D. Radiologis
== END | disposition home or self-care (01) ==
LOC: RADMAMWWP 07:19
PROVIDERS: ATTEND Internal Medicine
DX: Z12.31 Encounter for screening mammogram for malignant neoplasm of breast (principal)
CPT/HCPCS: 77063; 77067

== ENCOUNTER → 2022-07-08 | Outpatient (CLI) | payer BC ==
[2022-07-08 15:30] LABS: Basophils # (A) 0.05 X 10*3/uL (0.00-0.10); Basophils % (A) 0.7 %; Eosinophils # (A) 0.07 X 10*3/uL (0.04-0.35); HCT 41.1 % (37.2-46.3); Immature Grans, Automated 0.4 %; Lymphocytes # (A) 2.66 X 10*3/uL (0.90-5.00); MCH 29.1 pg (27.0-32.0); MCHC 31.6 g/dL (32.0-37.0); MCV 92.2 fL (80.0-97.0); Monocytes # (A) 0.68 X 10*3/uL (0.20-1.00); Monocytes % (A) 9.7 %; NRBC Per 100 WBC 0 /100 WBCS (0.0-0.0); Neutrophils # (A) 3.51 X 10*3/uL (1.80-7.70); Neutrophils % (A) 50.2 %; Platelet Count 293 X 10*3/uL (140-440); RBC 4.46 X 10*6/uL (4.10-5.20); RDW 12.1 % (11.5-14.5)
[2022-07-08 16:40] LABS: ALT 33 U/L (8-44); AST 24 U/L (13-35); Albumin 4.4 g/dL (3.8-4.9); Albumin/Globulin Ratio 1.76 (1.60-3.17); Alkaline Phosphatase 85 U/L (41-126); BUN/Creat Ratio 22.71 Ratio (12.00-20.00); Blood Urea Nitrogen 15.9 mg/dL (9.0-27.0); Calcium 9.5 mg/dL (8.7-10.3); Carbon Dioxide 28.7 mmol/L (20.0-27.5); Chloride 100 mmol/L (96-109); Globulin 2.5 g/dL (1.6-3.3); Glucose 99 mg/dL (70-110); LDL Cholesterol,Calculated 43.8 mg/dL (0.0-131.0); Non-African American GFR(CKD) 97.5 (60.0-200.0); Potassium 4.9 mmol/L (3.5-5.5); Sodium 138 mmol/L (135-145); Total Protein 6.9 g/dL (6.2-8.2)
== END | disposition home or self-care (01) ==
LOC: LABWHC1 08:22
PROVIDERS: ATTEND Internal Medicine
DX: E78.5 Hyperlipidemia, unspecified (principal)
CPT/HCPCS: 36415; 80053; 80061; 84443; 85025

== ENCOUNTER → 2023-01-30 | Outpatient (CLI) | payer BC ==
--- NOTE | 2023-01-30 11:45 | BD ---
EXAMINATION TYPE: Axial Bone Density DATE OF EXAM: 01/30/2023 CLINICAL HISTORY: 57 years old Female. ICD-10 CODE: Z78.0 ASYMPTOMATIC MENOPAUSAL S Height: 62.4 Weight: 193 FRAX RISK QUESTIONS: Family History (Parent hip fracture): yes Glucocorticoids (More than 3mos): yes (Ex: prednisone, prednisolone, methylprednisolone, dexamethasone, and hydrocortisone). History of Fracture in Adulthood: yes Rheumatoid Arthritis: yes Current Tobacco Use: in the past RISK FACTORS HISTORY OF: History of Wrist Fracture: yes, both of them as an adult Family History of Osteoporosis: yes, with both femoral bones broken as well as tib/fibs Postmenopausal woman: yes, at age 52 Hyperparathyroidism: no Adrenal Insufficiency: no MEDICATIONS: Prednisone or other steroids: yes, for RA Additional Medications: Peloquin, statin for cholesterol, steroids for RA, vit d, reflux meds, Additional History: RA, cholesterol, reflux, multiple fxs, EXAM MEASUREMENTS: Bone mineral densitometry was performed using the [employer] System. Bone mineral density as measured about the Lumbar spine is: ----- L1-L4(G/cm2): 0.920 T Score Values are as follows: ----- L1: -3.0 ----- L2: -2.4 ----- L3: -2.0 ----- L4: -1.6 ----- L1-L4: -2.2 Z Score Values are as follows: ----- L1: -2.9 ----- L2: -2.3 ----- L3: -1.9 ----- L4: -1.5 ----- L1-L4: -2.1 Bone mineral density is the first dexa study for this patient...baseline study. Bone mineral density about the R hip (g/cm2): 0.860 Bone mineral density about the L hip (g/cm2): 0.886 T Score values are as follows: -----R Neck: -1.9 -----L Neck: -1.8 -----R Total: -1.2 -----L Total: -1.0 Z Score values are as follows: -----R Neck: -1.3 -----L Neck: -1.2 -----R Total: -1.0 -----L Total: -0.8 Bone mineral density is a baseline study for her. FRAX%s: The graph provided illustrates a 43.9% chance for a major osteoporotic fx and a 3.9% chance f or the hips probability for fx in 10 years time. IMPRESSION: Osteoporosis (T Score less than -2.5). There is increased fracture risk and therapy is usually indicated based on age. Re-Screen 1-2 years. NOTE: T-SCORE=SD OF THE YOUNG ADULT MEAN.
--- NOTE | 2023-01-31 07:00 | MM ---
Reason for Exam: Screening (asymptomatic). Last mammogram was performed 1 year(s) and 1 month(s) ago. Patient History: Menarche at age 14. First Full-Term at age 27. Postmenopausal. Maternal cousin had breast cancer, age 52. Maternal aunt had breast cancer, age 30. Paternal aunt had breast cancer, age 45. Risk Values: Rhoda 5 year model risk: 1.3%. NCI Lifetime model risk: 9.1%. Prior Study Comparison: 01/30/2021 Left Diagnostic Mammogram, [facility]. 07/31/2021 Left Diagnostic Mammogram, [facility]. 01/29/2022 Bilateral MG 3D screening mammo w/cad, [facility]. Tissue Density: The breast tissue is heterogeneously dense. This may lower the sensitivity of mammography. Findings: Analyzed By CAD. There are benign-appearing bilateral axillary lymph nodes redemonstrated. There is no suspicious group of microcalcifications or new suspicious mass in either breast. Overall Assessment: Negative, BI-RAD 1 Management: Screening Mammogram of both breasts in 1 year. . Patient should continue monthly self-breast exams. A clinical breast exam by your physician is recommended on an annual basis. This exam should not preclude additional follow-up of suspicious palpable abnormalities. Note on Rhoda scores and lifetime risk: 1. A Rhoda score greater than 3% is considered moderate risk. If this is the case, consider specialist referral to assess eligibility for a risk reducing agent. 2. If overall lifetime risk for the development of breast cancer is 20% or higher, the patient may qualify for future screening with alternating mammogram and breast MRI. Electronically signed and approved by: John Pedraza M.D.
== END | disposition home or self-care (01) ==
LOC: RADMAMWWP 09:02
PROVIDERS: ATTEND Internal Medicine
DX: Z12.31 Encounter for screening mammogram for malignant neoplasm of breast (principal); Z13.820 Encounter for screening for osteoporosis; M81.0 Age-related osteoporosis without current pathological fracture; M85.89 Other specified disorders of bone density and structure, multiple sites; Z80.3 Family history of malignant neoplasm of breast; Z78.0 Asymptomatic menopausal state
CPT/HCPCS: 77063; 77067; 77080

== ENCOUNTER → 2023-07-28 | Outpatient (CLI) | payer BC ==
--- NOTE | 2023-07-28 09:36 | US ---
EXAMINATION TYPE: US liver DATE OF EXAM: 07/28/2023 COMPARISON: NONE CLINICAL INDICATION: Female, 58 years old with history of R74.01 ELEVATION OF LEVELS OF LIVER TRANSAM INASE L; TECHNIQUE: Multiple sonographic images of the right upper quadrant are obtained. FINDINGS: EXAM MEASUREMENTS: Liver Length: 18.2 cm Gallbladder Wall: 0.1 cm CBD: 0.4 cm Right Kidney: 9.5 x 5.1 x 5.1 cm Pancreas: Echogenic in appearance, head and tail not well seen Liver: Increased attenuation, decreased visualization of vessels suggestive of fatty infiltrate. En larged in size. Gallbladder: No stones, sludge or wall thickening Evidence for sonographic Cortés's sign: neg CBD: wnl Right Kidney: No hydronephrosis or masses seen IMPRESSION: 1. Hepatic steatosis. 2. No evidence for acute process.
== END | disposition home or self-care (01) ==
LOC: RADUSWWP 08:29
PROVIDERS: ATTEND Internal Medicine
DX: K76.0 Fatty (change of) liver, not elsewhere classified (principal); R74.01 Elevation of levels of liver transaminase levels
CPT/HCPCS: 76705

== ENCOUNTER → 2023-12-23 | Outpatient (CLI) | payer BC ==
--- NOTE | 2023-12-25 09:40 | US ---
EXAMINATION TYPE: US thyroid st tissue head/neck DATE OF EXAM: 12/23/2023 COMPARISON: NONE CLINICAL INDICATION: Female, 58 years old with history of R22.1 NECK NODULE; Right posterior neck pal pable. Patient states it has not changed in size. TECHNIQUE: Multiple sonographic images taken. FINDINGS: Patients area of concern scanned at posterior right neck. Lymph node seen with short axis measurement = 0.3 cm. IMPRESSION: Benign-appearing lymph node in the posterior right neck in the area of clinical concern. It is 3 mm on the short axis, is well-circumscribed and has a fatty raj.
== END | disposition home or self-care (01) ==
LOC: RADUSWWP 16:14
PROVIDERS: ATTEND Internal Medicine
DX: R22.1 Localized swelling, mass and lump, neck (principal)
CPT/HCPCS: 76536

== ENCOUNTER → 2024-02-11 | Outpatient (CLI) | payer BC ==
--- NOTE | 2024-02-17 11:59 | MM ---
Reason for Exam: Screening (asymptomatic). Last screening mammogram was performed 12 month(s) ago. Patient History: Menarche at age 14. First Full-Term at age 27. Postmenopausal. Maternal cousin had breast cancer, age 52. Maternal aunt had breast cancer, age 30. Paternal aunt had breast cancer, age 45. Risk Values: Rhoda 5 year model risk: 1.4%. NCI Lifetime model risk: 8.9%. Prior Study Comparison: 07/31/2021 Left Diagnostic Mammogram, [facility]. 01/29/2022 Bilateral MG 3D screening mammo w/cad, [facility]. 01/30/2023 Bilateral MG 3D screening mammo w/cad, [facility]. Tissue Density: The breasts are heterogeneously dense, which may obscure small masses. Findings: Analyzed By CAD. Right breast: There is no suspicious group of microcalcifications or new suspicious mass. Left breast: There is no suspicious group of microcalcifications or new suspicious mass. Overall Assessment: Negative, BI-RAD 1 Management: Screening Mammogram of both breasts in [address] [facility] will attempt to contact patient to return for supplemental views and ultrasound if indicated. Patient should continue monthly self-breast exams. A clinical breast exam by your physician is recommended on an annual basis. This exam should not preclude additional follow-up of suspicious palpable abnormalities. Note on Rhoda scores and lifetime risk: 1. A Rhoda score greater than 3% is considered moderate risk. If this is the case, consider specialist referral to assess eligibility for a risk reducing agent. 2. If overall lifetime risk for the development of breast cancer is 20% or higher, the patient may qualify for future screening with alternating mammogram and breast MRI. Electronically signed and approved by: Keegan Ramesh DO
== END | disposition home or self-care (01) ==
LOC: RADMAMWWP 16:10
PROVIDERS: ATTEND Internal Medicine
DX: Z12.31 Encounter for screening mammogram for malignant neoplasm of breast (principal); Z78.0 Asymptomatic menopausal state; Z80.3 Family history of malignant neoplasm of breast
CPT/HCPCS: 77063; 77067

== ENCOUNTER → 2024-12-28 | Outpatient (CLI) | payer BC ==
[2024-12-28 14:43] LABS: Basophils # (A) 0.04 X 10*3/uL (0.00-0.10); Basophils % (A) 0.7 %; Eosinophils # (A) 0.19 X 10*3/uL (0.04-0.35); Eosinophils % (A) 3.4 %; HCT 39.8 % (37.2-46.3); HGB 12.9 g/dL (12.0-15.0); Lymphocytes # (A) 1.36 X 10*3/uL (0.90-5.00); Lymphocytes % (A) 24.2 %; MCH 29.1 pg (27.0-32.0); MCHC 32.4 g/dL (32.0-37.0); MCV 89.6 FL (80.0-97.0); Mean Platelet Volume 9.3 FL (9.5-12.2); Monocytes # (A) 0.62 X 10*3/uL (0.20-1.00); NRBC Per 100 WBC 0 X 10*3/uL (0.00-0.01); Neutrophils % (A) 60.5 %; Platelet Count 301 X 10*3/uL (140-440); RBC 4.44 X 10*6/uL (4.10-5.20); RDW 12.5 % (11.5-14.5); WBC 5.62 X 10*3/uL (4.50-10.00)
[2024-12-28 15:50] LABS: ALT 44 U/L (8-44); AST 39 U/L (13-35); Albumin 4.4 g/dL (3.8-4.9); Albumin/Globulin Ratio 1.69 Ratio (1.60-3.17); Alkaline Phosphatase 135 U/L (41-126); BUN/Creat Ratio 23.71 Ratio (12.00-20.00); Blood Urea Nitrogen 16.6 mg/dL (9.0-27.0); Calcium 9.7 mg/dL (8.7-10.3); Carbon Dioxide 23.1 mmol/L (21.6-31.8); Chloride 102 mmol/L (96-109); Chol/HDL Ratio 4.03 Ratio; Globulin 2.6 g/dL (1.6-3.3); Glucose 126 mg/dL (70-110); LDL Cholesterol,Calculated 57.8 mg/dL (0.0-131.0); Potassium 4.5 mmol/L (3.5-5.5); Sodium 139 mmol/L (135-145); Total Bilirubin 0.5 mg/dL (0.3-1.2)
== END | disposition home or self-care (01) ==
LOC: LABWHC1 09:46
PROVIDERS: ATTEND Internal Medicine
DX: Z00.00 Encounter for general adult medical examination without abnormal findings (principal); E11.9 Type 2 diabetes mellitus without complications; M81.0 Age-related osteoporosis without current pathological fracture
CPT/HCPCS: 36415; 80053; 80061; 82306; 83036; 83735; 84443; 85025

== ENCOUNTER → 2025-03-10 | Outpatient (CLI) | payer BC ==
--- NOTE | 2025-03-10 09:08 | MM ---
Reason for Exam: Screening (asymptomatic). Last mammogram was performed 1 year(s) and 1 month(s) ago. Patient History: Menarche at age 14. First Full-Term at age 27. Postmenopausal. Maternal cousin had breast cancer, age 52. Maternal aunt had breast cancer, age 30. Paternal aunt had breast cancer, age 45. Risk Values: Rhoda 5 year model risk: 1.4%. NCI Lifetime model risk: 8.7%. Prior Study Comparison: 01/29/2022 Bilateral MG 3D screening mammo w/cad, [facility]. 01/30/2023 Bilateral MG 3D screening mammo w/cad, [facility]. 02/11/2024 Bilateral MG 3D screening mammo w/cad, [facility]. Tissue Density: The breasts are heterogeneously dense, which may obscure small masses. Findings: Analyzed By CAD. There is no suspicious group of microcalcifications or new suspicious mass in either breast. Overall Assessment: Negative, BI-RAD 1 Management: Screening Mammogram of both breasts in 1 year. . Patient should continue monthly self-breast exams. A clinical breast exam by your physician is recommended on an annual basis. This exam should not preclude additional follow-up of suspicious palpable abnormalities. Note on Rhoda scores and lifetime risk: 1. A Rhoda score greater than 3% is considered moderate risk. If this is the case, consider specialist referral to assess eligibility for a risk reducing agent. 2. If overall lifetime risk for the development of breast cancer is 20% or higher, the patient may qualify for future screening with alternating mammogram and breast MRI. [facility], , 03/10/2025 9:06 AM. Electronically signed and approved by: John Pedraza M.D.
--- NOTE | 2025-03-10 09:50 | BD ---
EXAMINATION TYPE: Axial Bone Density DATE OF EXAM: 03/10/2025 CLINICAL HISTORY: 59 years old Female. ICD-10 CODE: M81.0 OSTEOP , Additional History: Height: 62 Weight: 192 FRAX RISK QUESTIONS: Family History (Parent hip fracture): yes Glucocorticoids (More than 3mos): yes (Ex: prednisone, prednisolone, methylprednisolone, dexamethasone, and hydrocortisone). History of Fracture in Adulthood: yes 3. Menopause before 45: no, at 52 Rheumatoid Arthritis: yes RISK FACTORS HISTORY OF: multiple fxs History of Wrist Fracture: yes, both MEDICATIONS: RA, steroids, peloquin, cholesterol meds,reflux, vit d EXAM MEASUREMENTS: Bone mineral densitometry was performed using the [employer] System. Bone mineral density as measured about the Lumbar spine is: ----- L1-L4(G/cm2): 0.965 T Score Values are as follows: ----- L1: -2.3 ----- L2: -2.5 ----- L3: -1.4 ----- L4: -1.3 ----- L1-L4: -1.8 Z Score Values are as follows: ----- L1: -2.0 ----- L2: -2.2 ----- L3: -1.1 ----- L4: -1.1 ----- L1-L4: -1.5 Bone mineral density has: Increased 4.9% since study of: 01.30.2023 Bone mineral density about the R hip (g/cm2): 0.859 Bone mineral density about the L hip (g/cm2): 0.866 T Score values are as follows: -----R Neck: -2.0 -----L Neck: -2.2 -----R Total: -1.2 -----L Total: -1.1 Z Score values are as follows: -----R Neck: -1.4 -----L Neck: -1.5 -----R Total: -0.9 -----L Total: -0.9 Bone mineral density has: Decreased -1.3% since study of: 01.30.2023 FRAX%s: The graph provided illustrates a 49.6% chance for a major osteoporotic fx and a 6.0% chance f or the hips probability for fx in 10 years time. IMPRESSION: Osteopenia (T Score between -2.5 and -1) remains present. There is slightly increased risk of fracture and the patient may be considered for treatment. Re-Screen 2-5 years. NOTE: T-SCORE=SD OF THE YOUNG ADULT MEAN. [facility], , 03/10/2025 9:48 AM
== END | disposition home or self-care (01) ==
LOC: RADBDWWP 07:58
PROVIDERS: ATTEND Internal Medicine
DX: Z12.31 Encounter for screening mammogram for malignant neoplasm of breast (principal); R92.333 Mammographic heterogeneous density, bilateral breasts; M81.0 Age-related osteoporosis without current pathological fracture; M85.89 Other specified disorders of bone density and structure, multiple sites; Z78.0 Asymptomatic menopausal state; Z80.3 Family history of malignant neoplasm of breast
CPT/HCPCS: 77063; 77067; 77080